=== PATIENT | female | born 1945 | race African-American/Black ===

== ENCOUNTER 2020-01-09 23:08 | Inpatient (IN) | payer MEDICARE, OTHER ==
[~2020-01-09] VITALS: Ht 162.6 cm; Wt 84.9 kg
--- NOTE | 2020-01-09 23:10 | NUR ---
ED Nurse Note: Patient was brought in by ambulance [address] with complaints of SOB. Per EMS patient lives in her car. Patient was given epinephrine per EMS. Patient has hx of asthma. Patient is AAOX4, no complaints of chest pain
--- NOTE | 2020-01-09 23:12 | NUR ---
ED Nurse Note: ERMD at bedside
[2020-01-09] MEDS ORDERED: Solu-MEDROL 125mg Inj IVP ONE (23:15)
[2020-01-09] MEDS ORDERED: Ipratropium 0.02% Inh Soln 2.5ml UD HHN ONE (23:15)
[2020-01-09] MEDS ORDERED: Albuterol ud Inhalation HHN ONE ×2 (23:15→23:45)
--- NOTE | 2020-01-09 23:15 | NUR ---
ED Nurse Note: RT at bedside, patient hooked in BIPAP Fi02 at 80%
--- NOTE | 2020-01-09 23:17 | Emergency Room Report ---
History of Present Illness General Chief Complaint: Dyspnea/Respdistress Source: Patient Present Illness HPI This is a 75-year-old female with a history of high blood pressure and asthma. She presents with chief plaint of shortness of breath and respite distress. She says she is chronically short of breath but symptoms worsened tonight. She says she could not breathe. Her nebulizer treatment was not helping. She called 911. Per EMS she was hypoxic and very tight and wheezing. They gave her breathing treatment and 0.5 of epinephrine IM. Symptoms slightly improved. Worse with exertion. Worse with lying flat. Symptoms are severe. Never had this problem before. Last admission was 3 years ago. Complaint of chest tightness. No swelling. No nausea or vomiting. No diarrhea. No fever chills. Allergies: Coded Allergies: PENICILLINS (Unverified Allergy, Unknown, 01/09/20) COVID-19 Screening Contact w/high risk pt: No Recent Travel to affected area: No Experienced COVID-19 symptoms?: No COVID-19 Testing performed REED CLEANER: No Patient History Past Medical History: see triage record, old chart reviewed, HTN, asthma Past Surgical History: other Pertinent Family History: none Social History: Denies: smoking Now: No Immunizations: other Reviewed Nursing Documentation: PMH: Agreed; PSxH: Agreed Nursing Documentation-PMH Past Medical History: No History, Except For Hx Hypertension: Yes Hx Asthma: Yes Review of Systems Eye: Denies: eye pain, blurred vision ENT: Denies: ear pain, nose congestion, throat swelling Respiratory: Reports: cough, shortness of breath, wheezing Cardiovascular: Denies: chest pain, palpitations Gastrointestinal: Denies: abdominal pain, diarrhea, nausea, vomiting Musculoskeletal: Denies: back pain, joint pain Skin: Denies: rash Neurological: Denies: headache, numbness Endocrine: Denies: increased thirst, increased urine Hematologic/Lymphatic: Denies: easy bruising All Other Systems: negative except mentioned in HPI Physical Exam Vital Signs Date Time Temp Pulse Resp B/P (MAP) Pulse Ox O2 Delivery O2 Flow Rate FiO2 01/09/20 23:09 98.1 110 18 90/40 (57) 75 Room Air Vitals with hypoxia Sp02 EP Interpretation: reviewed, abnormal General Appearance: well appearing, alert, severe distress Head: normocephalic, atraumatic Eyes: bilateral eye PERRL, bilateral eye EOMI ENT: hearing grossly normal, normal pharynx Neck: full range of motion, supple, no meningismus Respiratory: chest non-tender, respiratory distress, decreased breath sounds, wheezing Cardiovascular #1: regular rate, rhythm, no murmur, tachycardia Gastrointestinal: normal bowel sounds, non tender, no mass, no organomegaly, no bruit, non-distended Musculoskeletal: back normal, normal range of motion, gait/station normal Psychiatric: mood/affect normal Procedures Critical Care Time Critical Care Time Critical care is mandated in this patient who presented with respiratory failure secondary to pulmonary edema. Patient require my urgent intervention to attenuate the risks of rotatory collapse which may lead to cardiovascular collapse and . Critical care time is 35 minutes excluding any reportable procedure. Critical care time included evaluation, multiple reevaluation, looking at old charts, interpreting laboratory and diagnostic data, discussing case with patient and family and consultants, and charting. Medical Decision Making Diagnostic Impression: Primary Impression: Respiratory failure with hypoxia Qualified Codes: J96.01 - Acute respiratory failure with hypoxia Additional Impressions: Pulmonary edema Qualified Codes: J81.0 - Acute pulmonary edema Acute exacerbation of CHF (congestive heart failure) Qualified Codes: I50.9 - Heart failure, unspecified Asthma with exacerbation Qualified Codes: J45.901 - Unspecified asthma with (acute) exacerbation Hypertensive cardiovascular disease Qualified Codes: I11.0 - Hypertensive heart disease with heart failure New onset type 2 diabetes mellitus CKD (chronic kidney disease) Qualified Codes: N18.9 - Chronic kidney disease, unspecified ER Course This patient presents with respiratory distress with hypoxia and wheezing. She improved greatly with BiPAP, Lasix, nitroglycerin and Vasotec. She diuresed over 2 L. Much more comfortable on BiPAP now. She has no history of diabetes but glucose is 368 and she has 4+ glucose in the urine. Will admit for further work-up. I contacted Dr. Coker for admission. EKG Diagnostic Results Rate: tachycardiac Rhythm: NSR ST Segments: other - NSST changes ASA given to the pt in ED: Yes Rhythm Strip Diag. Results EP Interpretation: yes Rate: 93 Rhythm: NSR, no PVC's, no ectopy Chest X-Ray Diagnostic Results Chest X-Ray Diagnostic Results : Chest X-Ray Ordered: Yes # of Views/Limited/Complete: 1 View Indication: Shortness of Breath EP Interpretation: Yes Interpretation: no consolidation, no pneumothorax, other - Pulmonary edema Impression: Other - chf with pulm edema Electronically Signed by: Damion Mosher MD Last Vital Signs Date Time Temp Pulse Resp B/P (MAP) Pulse Ox O2 Delivery O2 Flow Rate FiO2 01/09/20 23:09 98.1 110 18 90/40 (57) 75 Room Air Status: improved Disposition: ADMITTED INPATIENT Condition: Serious Damion Mosher MD Jan 09, 2020 23:17
[2020-01-09 23:30] VITALS: BP 231/141
[2020-01-10] VITALS (10 sets, daily range): BP systolic 141–168; BP diastolic 85–110
[2020-01-10] MEDS ORDERED: Nitroglycerin 2% oint pkt TOPIC ONE
[2020-01-10] MEDS ORDERED: Enalaprilat 2.5mg/2ml Inj IV ONE
[2020-01-10] MEDS ORDERED: Nitroglycerin Subl 0.4mg tab SL ONE
[2020-01-10 00:09] LABS: BASOPHILS % (AUTO) 1.8 % (0.0-2.0); EOSINOPHILS % (AUTO) 1.1 % (0.0-3.0); HEMATOCRIT 43.3 % (37.0-47.0); HEMOGLOBIN 14.4 G/DL (12.0-16.0); LYMPHOCYTES % (AUTO) 32.4 % (20.0-45.0); MEAN CORPUSCULAR VOLUME 92 FL (80-99); MONOCYTES % (AUTO) 4.1 % (1.0-10.0); NEUTROPHILS % (AUTO) 60.7 % (45.0-75.0); PLATELET COUNT 238 K/UL (150-450); RED BLOOD COUNT 4.68 M/UL (4.20-5.40); WHITE BLOOD COUNT 7.9 K/UL (4.8-10.8)
--- NOTE | 2020-01-10 00:25 | NUR ---
ED Nurse Note: First dose of NTG 0.4mg/tab given at 0015; BP 230/130, HR 133 2nd dose at 0020 3rd dose at 0025; BP after 3rd dose 198/116, HR 120
[2020-01-10 00:28] LABS: ANION GAP 16 mmol/L (5-15); BLOOD UREA NITROGEN 28 mg/dL (7-18); CALCIUM 8.2 MG/DL (8.5-10.1); CARBON DIOXIDE 22 MMOL/L (21-32); CHLORIDE 105 MMOL/L (98-107); CREATININE 1.6 MG/DL (0.55-1.30); POTASSIUM 4.3 MMOL/L (3.5-5.1); SODIUM 143 MMOL/L (136-145)
[2020-01-10 00:36] LABS: ALANINE AMINOTRANSFERASE 29 U/L (12-78); ALBUMIN 3.5 G/DL (3.4-5.0); ALBUMIN/GLOBULIN RATIO 0.9 (1.0-2.7); ALKALINE PHOSPHATASE 76 U/L (46-116); ASPARTATE AMINO TRANSFERASE 47 U/L (15-37); BILIRUBIN,TOTAL 0.6 MG/DL (0.2-1.0)
[2020-01-10 00:56] LABS: APPEARANCE,URINE CLEAR; BILIRUBIN, URINE NEGATIVE (NEGATIVE); COLOR,URINE PALE YELLOW; GLUCOSE, URINE (UA) 4+ (NEGATIVE); KETONES,URINE NEGATIVE (NEGATIVE); LEUKOCYTE ESTERASE ,URINE NEGATIVE (NEGATIVE); NITRITE,URINE NEGATIVE (NEGATIVE); PH,URINE 5 (4.5-8.0); PROTEIN,URINE 3+ (NEGATIVE); UROBILINOGEN,URINE NORMAL MG/DL (0.0-1.0)
--- NOTE | 2020-01-10 01:00 | NUR ---
ED Nurse Note: post furo output: 700ml urine output
[2020-01-10 01:08] LABS: FERRITIN 117 NG/ML (8-388)
[2020-01-10] MEDS ORDERED: Aspirin Baby 81mg ORAL ONE (01:30)
[2020-01-10] MEDS ORDERED: Albuterol ud Inhalation HHN PRN (03:30)
[2020-01-10] MEDS ORDERED: Insulin Human Regular 100units/ml 3ml IV ONE (03:30)
--- NOTE | 2020-01-10 03:45 | NUR ---
ED Nurse Note: Drained 800ml urine output thru FC
--- NOTE | 2020-01-10 03:48 | NUR ---
ED Nurse Note: Patient comfortably resting on bed. Patient verbalized that she is breathing and feeling better right now.
--- NOTE | 2020-01-10 05:41 | NUR ---
ED Nurse Note: Patient asleep on bed on semi fowlers position. Not in distress, stable vitals noted
--- NOTE | 2020-01-10 06:20 | NUR ---
ED Nurse Note: Patient removed in bipap per ERMD's order. Hooked to NC at 4L - O2 sat at 91%-95%
--- NOTE | 2020-01-10 07:26 | NUR ---
HAND-OFF: Report given to Luli Aguilera
--- NOTE | 2020-01-10 07:30 | NUR ---
ED Nurse Note: Pt is resting on her bed with no distress. Respirations are even and unlabored. Pt is aware of waiting for a bed at this time. AAO x4 and follows commands. Will continue to closely monitor.
--- NOTE | 2020-01-10 08:00 | NUR ---
ED Nurse Note: Pt has $445 in kyle on her wallet with one ring and a yellow necklace for her belongings.
--- NOTE | 2020-01-10 08:44 | Diagnostic Imaging Report ---
Indication: Shortness of breath Technique: One view of the chest Comparison: none Findings: Patient's chin to the upper mediastinum. There are bilateral diffuse interstitial and airspace infiltrates versus edema. No definite effusions. The heart is borderline enlarged. Inspiration is suboptimal. Impression: Bilateral diffuse infiltrates versus edema. Mild cardiomegaly
--- NOTE | 2020-01-10 12:10 | NUR ---
ED Nurse Note: Dr Scott at the bed side.
--- NOTE | 2020-01-10 13:09 | Consultation ---
History of Present Illness General Chief Complaint: Dyspnea/Respdistress Reason for Consultation: Acute kidney injury Present Illness HPI This is a 75 year old female with past medical history significant for HTN and CHF presenting with acute on chronic SOB, swelling. She says she used to take medications for HTN including LAsix up until 1.5 years ago, but after her from a blood clot, she was very angry at doctors, and stopped seeing her doctor and stopped taking all her meds. Over the last several months, she noticed swelling, weight gain, and orthopnea, which was worsening. SHe has also been drinking "a lot of water." Over the last few days, she got so short of breath that she called 911 from home. Right now, she feels much better after BIPAP and Lasix. Allergies: Coded Allergies: PENICILLINS (Unverified Allergy, Unknown, 01/09/20) Patient History Healthcare decision maker N Resuscitation status Advanced Directive on File Review of Systems Constitutional: Reports: malaise, weakness Respiratory: Reports: cough, orthopnea, shortness of breath, wheezing Cardiovascular: Reports: chest pain, edema, palpitations Gastrointestinal: Denies: no symptoms, see HPI, abdominal pain, constipation, diarrhea, nausea, vomiting, melena, hematemesis, other Genitourinary: Denies: no symptoms, see HPI, discharge, dysuria, frequency, hematuria, pain, retention, incontinence, urgency, vag bleed/dc, other Musculoskeletal: Denies: no symptoms, see HPI, back pain, gout, joint pain, joint swelling, muscle pain, muscle stiffness, other Skin: Denies: no symptoms, see HPI, rash, change in color, change in hair/nails , dryness, lesions, other Psychiatric: Denies: no symptoms, see HPI, prior hx, anxiety, depressed feelings, emotional problems, SI, HI, hallucinations, other Neurological: Denies: no symptoms, see HPI, headache, numbness, paresthesia, seizure, tingling, tremors, focal weakness, syncope, dizziness, other Endocrine: Denies: no symptoms, see HPI, excessive sweating, flushing, intolerance to temperature, increased thirst, increased urine, unexplained weight loss, other Hematologic/Lymphatic: Denies: no symptoms, see HPI, anemia, blood clots, easy bleeding, easy bruising, swollen glands, diathesis, other Physical Exam General Appearance: no apparent distress Lines, tubes and drains: peripheral HEENT: normocephalic, atraumatic Neck: non-tender, normal alignment, supple Respiratory/Chest: crackles/rales Cardiovascular/Chest: tachycardia Abdomen: non tender, soft Neurologic: alert, oriented x 3 Musculoskeletal: no effusion Last 24 Hour Vital Signs Date Time Temp Pulse Resp B/P (MAP) Pulse Ox O2 Delivery O2 Flow Rate FiO2 01/10/20 07:32 93 27 94 01/10/20 07:30 98.1 78 17 156/90 98 Room Air 01/10/20 05:30 98.1 90 22 141/94 100 Bi-pap 80 01/10/20 03:30 98.1 94 22 156/97 100 Bi-pap 80 01/10/20 03:20 92 24 100 60 01/10/20 01:30 98.0 106 23 164/103 97 Bi-pap 80 01/10/20 00:06 231/141 01/10/20 00:05 109 35 100 Bi-Pap 80 116 39 100 01/10/20 00:04 231/141 01/10/20 00:04 232/141 01/09/20 23:30 98.1 132 39 231/141 100 Room Air 60 01/09/20 23:30 134 39 Room Air 60 01/09/20 23:16 134 39 100 60 01/09/20 23:09 98.1 110 18 90/40 (57) 75 Room Air Intake and Output 01/09/20 01/10/20 19:00 07:00 Intake Total 20 ml Output Total 2700 ml Balance -2680 ml Intake Oral 20 ml Output Urine Total 2700 ml Laboratory Tests Test 01/09/20 23:20 01/10/20 00:35 White Blood Count 7.9 K/UL (4.8-10.8) Red Blood Count 4.68 M/UL (4.20-5.40) Hemoglobin 14.4 G/DL (12.0-16.0) Hematocrit 43.3 % (37.0-47.0) Mean Corpuscular Volume 92 FL (80-99) Mean Corpuscular Hemoglobin 30.8 PG (27.0-31.0) Mean Corpuscular Hemoglobin Concent 33.4 G/DL (32.0-36.0) Red Cell Distribution Width 13.0 % (11.6-14.8) Platelet Count 238 K/UL (150-450) Mean Platelet Volume 6.8 FL (6.5-10.1) Neutrophils (%) (Auto) 60.7 % (45.0-75.0) Lymphocytes (%) (Auto) 32.4 % (20.0-45.0) Monocytes (%) (Auto) 4.1 % (1.0-10.0) Eosinophils (%) (Auto) 1.1 % (0.0-3.0) Basophils (%) (Auto) 1.8 % (0.0-2.0) D-Dimer 1.86 mg/L FEU (0.00-0.49) H Sodium Level 143 MMOL/L (136-145) Potassium Level 4.3 MMOL/L (3.5-5.1) Chloride Level 105 MMOL/L (98-107) Carbon Dioxide Level 22 MMOL/L (21-32) Anion Gap 16 mmol/L (5-15) H Blood Urea Nitrogen 28 mg/dL (7-18) H Creatinine 1.6 MG/DL (0.55-1.30) H Estimat Glomerular Filtration Rate 38.2 mL/min (>60) Glucose Level 368 MG/DL (74-106) H Calcium Level 8.2 MG/DL (8.5-10.1) L Ferritin 117 NG/ML (8-388) Total Bilirubin 0.6 MG/DL (0.2-1.0) Aspartate Amino Transf (AST/SGOT) 47 U/L (15-37) H Alanine Aminotransferase (ALT/SGPT) 29 U/L (12-78) Alkaline Phosphatase 76 U/L (46-116) Troponin I 0.040 ng/mL (0.000-0.056) C-Reactive Protein, Quantitative < 0.4 mg/dL (0.00-0.90) Pro-B-Type Natriuretic Peptide 5064 pg/mL (0-125) H Total Protein 7.2 G/DL (6.4-8.2) Albumin 3.5 G/DL (3.4-5.0) Globulin 3.7 g/dL Albumin/Globulin Ratio 0.9 (1.0-2.7) L Urine Color Pale yellow Urine Appearance Clear Urine pH 5 (4.5-8.0) Urine Specific [place] 1.015 (1.005-1.035) Urine Protein 3+ (NEGATIVE) H Urine Glucose (UA) 4+ (NEGATIVE) H Urine Ketones Negative (NEGATIVE) Urine Blood 1+ (NEGATIVE) H Urine Nitrite Negative (NEGATIVE) Urine Bilirubin Negative (NEGATIVE) Urine Urobilinogen Normal MG/DL (0.0-1.0) Urine Leukocyte Esterase Negative (NEGATIVE) Urine RBC 0-2 /HPF (0 - 2) Urine WBC 0-2 /HPF (0 - 2) Urine Squamous Epithelial Cells Few /LPF (NONE/OCC) Urine Bacteria None /HPF (NONE) Urine Opiates Screen Negative (NEGATIVE) Urine Barbiturates Screen Negative (NEGATIVE) Phencyclidine (PCP) Screen Negative (NEGATIVE) Urine Amphetamines Screen Negative (NEGATIVE) Urine Benzodiazepines Screen Negative (NEGATIVE) Urine Cocaine Screen Negative (NEGATIVE) Urine Marijuana (THC) Screen Negative (NEGATIVE) Height (Feet): 5 Height (Inches): 4.00 Weight (Pounds): 180 Medications Current Medications Medications (Trade) Dose Ordered Sig/Manohar Route PRN Reason Start Time Stop Time Status Last Admin Dose Admin Albuterol Sulfate (Proventil) 2.5 mg Q4HRT PRN HHN wheezing 01/10/20 03:30 01/15/20 03:29 Assessment/Plan Diagnosis [place] I: #acute kidney injury due to CRS1 #acute on chronic CHF exacerbation #Acute hypoxemic respiratory failure #SOB, orthopnea #HTN - lasix 40 IV BID - urine studies - bipap prn - amlodipine 10mg daily - BP control - breathing treatments - antibiotics - strict I&Os - daily weights - monitor BMP, mag and phos daily - avoid nephrotoxins Time spent 70 min - greater than 50% on care coordination and counseling García Coker M.D. Jan 10, 2020 13:09
--- NOTE | 2020-01-10 13:59 | NUR ---
ED Nurse Note: Report given to Afsoun RN of telemetry unit.
--- NOTE | 2020-01-10 14:12 | NUR ---
ED Nurse Note: Dr Mehreen edouard for pt to go up with BP 168/104.
--- NOTE | 2020-01-10 14:45 | Consultation ---
DATE OF CONSULTATION: 01/10/2020 PULMONARY CONSULTATION CONSULTING PHYSICIAN: Victor Hugo Scott M.D. HISTORY OF PRESENT ILLNESS: This is a 75-year-old female with history of hypertension and asthma. She is in the hospital with shortness of breath and was in respiratory distress when she arrived. She states that her worst breathing is worse than previous. She was brought in by paramedics. The patient received epinephrine as well as breathing treatments with improvement in her symptoms. At this point, she is saying she is feeling better. PAST MEDICAL HISTORY: Notable for hypertension and asthma. PAST SURGICAL HISTORY: None. MEDICATIONS: Include albuterol, Lasix, and steroids. SOCIAL HISTORY: No history of alcohol or tobacco usage. REVIEW OF SYSTEMS: Reviewed. Pertinent positives and negatives are included in the body of report. PHYSICAL EXAMINATION: GENERAL: Reveals a 75-year-old female. VITAL SIGNS: Blood pressure is 150/60, heart rate 82, and respirations 20. O2 saturation 98% on room air. She is afebrile. HEENT: Unremarkable. CHEST: Shows decreased breath sounds bilaterally with few rhonchi. ABDOMEN: Soft. EXTREMITIES: There is no appreciable edema. LABORATORY DATA: Lab testing shows normal CBC and BMP with a creatinine 1.6. AST 47. Troponin negative x1. IMAGING STUDIES: X-ray of chest was obtained yesterday, which shows bilateral diffuse infiltrates suspicious for pulmonary edema. IMPRESSION: 1. Suspect pulmonary edema. 2. Hypertension. 3. Asthma. DISCUSSION: Currently, I do not suspect an infectious process. We will need to obtain COVID PCR. 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 Discussed with Internal Medicine. Needs diuresis, cardiac evaluation, echo. We will follow. Victor Hugo Scott M.D. DR: JORGE JOB#: [id number] CC:
--- NOTE | 2020-01-10 15:16 | History and Physical ---
History of Present Illness General Date patient seen: Jan 10, 2020 Reason for Hospitalization: Dyspnea/Respdistress Present Illness HPI 75 year old female with HTN presenting with acute on chronic SOB, swelling. She says she used to take medications for HTN including LAsix up until 1.5 years ago , but after her from a blood clot, she was very angry at doctors, and stopped seeing her doctor and stopped taking all her meds. Over the last several months, she noticed swelling, weight gain, and orthopnea, which was worsening. SHe has also been drinking "a lot of water." Over the last few days, she got so short of breath that she called 911 from home. Right now, she feels much better after BIPAP and Lasix. Allergies: Coded Allergies: PENICILLINS (Unverified Allergy, Unknown, 01/09/20) COVID-19 Screening Contact w/high risk pt: No Recent Travel to affected area: No Experienced COVID-19 symptoms?: No Patient History Healthcare decision maker N Resuscitation status Advanced Directive on File Review of Systems Constitutional: Denies: no symptoms, see HPI, chills, sweats, fever, malaise, weakness, other Eye: Denies: no symptoms, see HPI, eye pain, blurred vision, tearing, double vision, nose pain, nose congestion, acuity changes, discharge, other ENT: Denies: no symptoms, see HPI, ear pain, ear discharge, nose pain, nose congestion, throat pain, throat swelling, mouth pain, hearing loss, nasal discharge, other Respiratory: Reports: orthopnea, shortness of breath Cardiovascular: Reports: edema Gastrointestinal: Denies: no symptoms, see HPI, abdominal pain, constipation, diarrhea, nausea, vomiting, melena, hematemesis, other Genitourinary: Denies: no symptoms, see HPI, discharge, dysuria, frequency, hematuria, pain, retention, incontinence, urgency, vag bleed/dc, other Skin: Denies: no symptoms, see HPI, rash, change in color, change in hair/nails , dryness, lesions, other Psychiatric: Denies: no symptoms, see HPI, prior hx, anxiety, depressed feelings, emotional problems, SI, HI, hallucinations, other Neurological: Denies: no symptoms, see HPI, headache, numbness, paresthesia, seizure, tingling, tremors, focal weakness, syncope, dizziness, other Endocrine: Denies: no symptoms, see HPI, excessive sweating, flushing, intolerance to temperature, increased thirst, increased urine, unexplained weight loss, other Hematologic/Lymphatic: Denies: no symptoms, see HPI, anemia, blood clots, easy bleeding, easy bruising, swollen glands, diathesis, other Physical Exam General Appearance: no apparent distress, alert HEENT: normocephalic, atraumatic Neck: supple Respiratory/Chest: no respiratory distress, decreased breath sounds, crackles/ rales Cardiovascular/Chest: normal rate, regular rhythm Abdomen: non tender, soft Extremities: moderate edema Neurologic: alert, oriented x 3 Last 24 Hour Vital Signs Date Time Temp Pulse Resp B/P (MAP) Pulse Ox O2 Delivery O2 Flow Rate FiO2 01/10/20 14:13 98.6 78 20 168/104 99 Nasal Cannula 2.0 01/10/20 14:13 98.6 78 20 168/104 99 Nasal Cannula 2.0 01/10/20 11:35 98.0 79 16 156/85 98 Nasal Cannula 2.0 01/10/20 09:35 98.6 80 20 142/87 96 Nasal Cannula 2.0 01/10/20 07:32 93 27 94 01/10/20 07:30 98.1 78 17 156/90 98 Room Air 01/10/20 05:30 98.1 90 22 141/94 100 Bi-pap 80 01/10/20 03:30 98.1 94 22 156/97 100 Bi-pap 80 01/10/20 03:20 92 24 100 60 01/10/20 01:30 98.0 106 23 164/103 97 Bi-pap 80 01/10/20 00:06 231/141 01/10/20 00:05 109 35 100 Bi-Pap 80 116 39 100 01/10/20 00:04 231/141 01/10/20 00:04 232/141 01/09/20 23:30 98.1 132 39 231/141 100 Room Air 60 01/09/20 23:30 134 39 Room Air 60 01/09/20 23:16 134 39 100 60 01/09/20 23:09 98.1 110 18 90/40 (57) 75 Room Air Intake and Output 01/09/20 01/10/20 19:00 07:00 Intake Total 20 ml Output Total 2700 ml Balance -2680 ml Intake Oral 20 ml Output Urine Total 2700 ml Laboratory Tests Test 01/09/20 23:20 01/10/20 00:35 White Blood Count 7.9 K/UL (4.8-10.8) Red Blood Count 4.68 M/UL (4.20-5.40) Hemoglobin 14.4 G/DL (12.0-16.0) Hematocrit 43.3 % (37.0-47.0) Mean Corpuscular Volume 92 FL (80-99) Mean Corpuscular Hemoglobin 30.8 PG (27.0-31.0) Mean Corpuscular Hemoglobin Concent 33.4 G/DL (32.0-36.0) Red Cell Distribution Width 13.0 % (11.6-14.8) Platelet Count 238 K/UL (150-450) Mean Platelet Volume 6.8 FL (6.5-10.1) Neutrophils (%) (Auto) 60.7 % (45.0-75.0) Lymphocytes (%) (Auto) 32.4 % (20.0-45.0) Monocytes (%) (Auto) 4.1 % (1.0-10.0) Eosinophils (%) (Auto) 1.1 % (0.0-3.0) Basophils (%) (Auto) 1.8 % (0.0-2.0) D-Dimer 1.86 mg/L FEU (0.00-0.49) H Sodium Level 143 MMOL/L (136-145) Potassium Level 4.3 MMOL/L (3.5-5.1) Chloride Level 105 MMOL/L (98-107) Carbon Dioxide Level 22 MMOL/L (21-32) Anion Gap 16 mmol/L (5-15) H Blood Urea Nitrogen 28 mg/dL (7-18) H Creatinine 1.6 MG/DL (0.55-1.30) H Estimat Glomerular Filtration Rate 38.2 mL/min (>60) Glucose Level 368 MG/DL (74-106) H Calcium Level 8.2 MG/DL (8.5-10.1) L Ferritin 117 NG/ML (8-388) Total Bilirubin 0.6 MG/DL (0.2-1.0) Aspartate Amino Transf (AST/SGOT) 47 U/L (15-37) H Alanine Aminotransferase (ALT/SGPT) 29 U/L (12-78) Alkaline Phosphatase 76 U/L (46-116) Troponin I 0.040 ng/mL (0.000-0.056) C-Reactive Protein, Quantitative < 0.4 mg/dL (0.00-0.90) Pro-B-Type Natriuretic Peptide 5064 pg/mL (0-125) H Total Protein 7.2 G/DL (6.4-8.2) Albumin 3.5 G/DL (3.4-5.0) Globulin 3.7 g/dL Albumin/Globulin Ratio 0.9 (1.0-2.7) L Urine Color Pale yellow Urine Appearance Clear Urine pH 5 (4.5-8.0) Urine Specific [place] 1.015 (1.005-1.035) Urine Protein 3+ (NEGATIVE) H Urine Glucose (UA) 4+ (NEGATIVE) H Urine Ketones Negative (NEGATIVE) Urine Blood 1+ (NEGATIVE) H Urine Nitrite Negative (NEGATIVE) Urine Bilirubin Negative (NEGATIVE) Urine Urobilinogen Normal MG/DL (0.0-1.0) Urine Leukocyte Esterase Negative (NEGATIVE) Urine RBC 0-2 /HPF (0 - 2) Urine WBC 0-2 /HPF (0 - 2) Urine Squamous Epithelial Cells Few /LPF (NONE/OCC) Urine Bacteria None /HPF (NONE) Urine Opiates Screen Negative (NEGATIVE) Urine Barbiturates Screen Negative (NEGATIVE) Phencyclidine (PCP) Screen Negative (NEGATIVE) Urine Amphetamines Screen Negative (NEGATIVE) Urine Benzodiazepines Screen Negative (NEGATIVE) Urine Cocaine Screen Negative (NEGATIVE) Urine Marijuana (THC) Screen Negative (NEGATIVE) Height (Feet): 5 Height (Inches): 4.00 Weight (Pounds): 180 Medications Current Medications Medications (Trade) Dose Ordered Sig/Manohar Route PRN Reason Start Time Stop Time Status Last Admin Dose Admin Albuterol Sulfate (Proventil) 2.5 mg Q4HRT PRN HHN wheezing 01/10/20 03:30 01/15/20 03:29 Assessment/Plan Problem List: (1) Hypertensive cardiovascular disease ICD Codes: I11.9 - Hypertensive heart disease without heart failure SNOMED: 49783568 Qualifiers: Qualified Codes: I11.0 - Hypertensive heart disease with heart failure (2) Asthma with exacerbation ICD Codes: J45.901 - Unspecified asthma with (acute) exacerbation SNOMED: 545919145 Qualifiers: Qualified Codes: J45.901 - Unspecified asthma with (acute) exacerbation (3) CKD (chronic kidney disease) ICD Codes: N18.9 - Chronic kidney disease, unspecified SNOMED: 441051139 Qualifiers: Qualified Codes: N18.9 - Chronic kidney disease, unspecified (4) New onset type 2 diabetes mellitus ICD Codes: E11.9 - Type 2 diabetes mellitus without complications SNOMED: 85740765 (5) Pulmonary edema ICD Codes: J81.1 - Chronic pulmonary edema SNOMED: 14352099 Qualifiers: Qualified Codes: J81.0 - Acute pulmonary edema (6) Acute exacerbation of CHF (congestive heart failure) ICD Codes: I50.9 - Heart failure, unspecified SNOMED: 584210345, [id number] Qualifiers: Qualified Codes: I50.9 - Heart failure, unspecified (7) Respiratory failure with hypoxia ICD Codes: J96.91 - Respiratory failure, unspecified with hypoxia SNOMED: 79823222841864244 Qualifiers: Qualified Codes: J96.01 - Acute respiratory failure with hypoxia Status: stable Assessment/Plan: Ms. Demetris Cruz is a 75 year old female with hx of HTN, presenting with pulmonary edema and CHF exacerbation (undiagnosed) #Pulmonary edema #acute hypoxic respiratory failure #Pedal edema #Suspected acute on chronic CHF -ADmit to tele -cardiology, pulm consult appreciated. -Continue LAsix IV 40 BID -Check BMP -BNP elevated. -cXR with pulmonary edema noted. -s/p BiPAP, lasix with significant improvement noted. -Needs TTE. -Will need GDT once CHF formally diagnosed #Hyperglycemia #Suspected DM2 -no formal diagnosis but noted to be hyperglycemic -endo consulted. appreciate recs. -check a1c -RISS, POCT #NENITA -nephro consulted. appreciate recs. -diuresis as above. -check BMP #Hypertensive urgency #HTN likely longstanding, not on meds. -start amlodipine 10 mg daily -will need likely BB and other agents if continues to be high. Time spent on encounter, 80 mins, 40 mins spent on counseling, coordination of care, d/w RN, consultants. Extra 37 mins spent on chart review of EMR records; physician documentation, labs, imaging, medications. Time of note doesn't reflect time of encounter. Garret Montaño MD Jan 10, 2020 15:16
[2020-01-10] MEDS: NovoLOG Insulin Flexpen SUBQ SCH ×2 (16:30→21:00)
[2020-01-10] MEDS ORDERED: cefTRIAXone 1 GM in D5W 55 ML IVPB SCH (19:30)
--- NOTE | 2020-01-10 19:30 | NUR ---
NURSE NOTES: Received pt from [employer] ATTENDANTLUCIAN Rockwell at 1445, all admission assessments and instructions done and pt verbally confirmed to understand all. pt is awake and alert, pt has NC 4LMP. pt is on continues heart monitoring, pt has intact iv access RAC 20G SL. skin is intact. pt has Love cath in place is working well. Dr Scott is aware about admission, fever, HTN, tachycardia, and other lab results and V/S, he gave order heparin and Levaquin iv and Dr stated other orders Dr Mcarthur will F/U. All belongings are with pt and pt has 447$ and asked to put in safe, RN called RANDOLPH Flores and she couldn't come and report given to LUCIAN Schwartz to F/U for money. all needs attended, bed is locked and is in the lowest position, call light within easy reach. will continue to monitor. Addendum: 01/10/20 at 2058 by Reza Posadas RN skin is intact. Addendum: 01/10/20 at 2101 by Reza Posadas RN pt asked for asthma spray, Dr Scott is aware but refused to give it to her, pt is aware. and pt doesn't remember home meds, Dr Scott is aware.
--- NOTE | 2020-01-10 19:31 | NUR ---
NURSE NOTES: Got report from Reza RN. Pt in stable condition. No s/s of distress or discomfort noted. Pt resting in bed comfortably. Bed in low and locked position, call light within reach, bedside table within reach. Continue to monitor.
[2020-01-10] MEDS: Heparin 5000 units/ml inj SUBQ SCH (21:26)
[2020-01-11] VITALS: BP 149/82
[2020-01-11 04:00] VITALS: BP 144/71
[2020-01-11] MEDS: NovoLOG Insulin Flexpen SUBQ SCH ×4 (06:30→21:00)
[2020-01-11 06:51] LABS: ANION GAP 9 mmol/L (5-15); BLOOD UREA NITROGEN 29 mg/dL (7-18); CALCIUM 8.6 MG/DL (8.5-10.1); CARBON DIOXIDE 31 MMOL/L (21-32); CHLORIDE 102 MMOL/L (98-107); CREATININE 1.5 MG/DL (0.55-1.30); POTASSIUM 3.8 MMOL/L (3.5-5.1); SODIUM 142 MMOL/L (136-145)
[2020-01-11 07:09] LABS: BASOPHILS % (AUTO) 0.6 % (0.0-2.0); HEMATOCRIT 39.5 % (37.0-47.0); HEMOGLOBIN 13.3 G/DL (12.0-16.0); LYMPHOCYTES % (AUTO) 8.7 % (20.0-45.0); MEAN CORPUSCULAR VOLUME 89 FL (80-99); MONOCYTES % (AUTO) 6.8 % (1.0-10.0); PLATELET COUNT 185 K/UL (150-450); RED BLOOD COUNT 4.42 M/UL (4.20-5.40); RED CELL DISTRIBUTION WIDTH 12.5 % (11.6-14.8); WHITE BLOOD COUNT 11.4 K/UL (4.8-10.8)
--- NOTE | 2020-01-11 07:20 | NUR ---
HAND-OFF: Report given to Arabella EPSTEIN.
--- NOTE | 2020-01-11 07:25 | NUR ---
NURSE NOTES: Received patient in bed awake. O2 via NC in place, no SOB or acute distress. IV line intact and patent. FC intact, draining dark yellow urine. HOB elevated. Bed locked in lowest position. Call light within reach. Will continue plan of care.
[2020-01-11 08:00] VITALS: BP 160/110
[2020-01-11 08:32] LABS: APPEARANCE,URINE SLIGHTLY CLOUDY; BILIRUBIN, URINE NEGATIVE (NEGATIVE); GLUCOSE, URINE (UA) NEGATIVE (NEGATIVE); KETONES,URINE NEGATIVE (NEGATIVE); LEUKOCYTE ESTERASE ,URINE 1+ (NEGATIVE); NITRITE,URINE NEGATIVE (NEGATIVE); PH,URINE 7 (4.5-8.0); PROTEIN,URINE 2+ (NEGATIVE); UROBILINOGEN,URINE 1 MG/DL (0.0-1.0)
[2020-01-11 08:34] LABS: COLOR,URINE YELLOW
[2020-01-11] MEDS ORDERED: HydrALAZINE 25mg tab ORAL SCH (09:00)
--- NOTE | 2020-01-11 09:06 | Nephrology Progress Note ---
Assessment/Plan Plan #acute kidney injury due to CRS1 #acute on chronic CHF exacerbation #Acute hypoxemic respiratory failure #SOB, orthopnea #HTN - lasix 40 IV BID - continue levaquin - bipap prn - amlodipine 10mg daily - BP control - breathing treatments - antibiotics - strict I&Os - daily weights - monitor BMP, mag and phos daily - avoid nephrotoxins Time spent 70 min - greater than 50% on care coordination and counseling Subjective ROS Limited/Unobtainable: No Constitutional: Denies: no symptoms, chills, diaphoresis, fever, malaise, weakness, other HEENT: Denies: no symptoms, eye pain, blurred vision, tearing, double vision, ear pain, ear discharge, nose pain, nose congestion, throat pain, throat swelling, mouth pain, mouth swelling, other Genitourinary: Denies: no symptoms, burning, discharge, frequency, flank pain, hematuria, incontinence, pain, urgency, other Neurologic/Psychiatric: Denies: no symptoms, anxiety, depressed, emotional problems, headache, numbness, paresthesia, pre-existing deficit, seizure, tingling, tremors, weakness, other Subjective Breathing improved on NC Cr 1.5 a1c 6.7 Objective Objective Last 24 Hour Vital Signs Date Time Temp Pulse Resp B/P (MAP) Pulse Ox O2 Delivery O2 Flow Rate FiO2 01/11/20 08:00 98.1 89 20 160/110 (127) 97 01/11/20 04:00 90 01/11/20 04:00 98.2 89 18 144/71 (95) 96 01/11/20 02:50 Nasal Cannula 2.0 01/11/20 00:00 99.1 86 18 149/82 (104) 95 01/11/20 00:00 101 01/10/20 21:00 Nasal Cannula 2.0 01/10/20 20:00 109 01/10/20 20:00 99.0 99 18 165/95 (118) 96 01/10/20 16:30 99.0 101 19 158/108 (125) 94 01/10/20 15:58 105 01/10/20 15:49 100 164/110 01/10/20 15:19 102 01/10/20 15:15 Nasal Cannula 2.0 01/10/20 15:00 100.0 100 20 164/110 (128) 94 01/10/20 14:13 98.6 78 20 168/104 99 Nasal Cannula 2.0 01/10/20 14:13 98.6 78 20 168/104 99 Nasal Cannula 2.0 01/10/20 11:35 98.0 79 16 156/85 98 Nasal Cannula 2.0 01/10/20 09:35 98.6 80 20 142/87 96 Nasal Cannula 2.0 Intake and Output 01/10/20 01/11/20 19:00 07:00 Intake Total 120 ml Output Total 4000 ml Balance 120 ml -4000 ml Intake Oral 120 ml Output Urine Total 4000 ml Laboratory Tests 01/11/20 04:00: White Blood Count 11.4H, Red Blood Count 4.42, Hemoglobin 13.3, Hematocrit 39.5 , Mean Corpuscular Volume 89, Mean Corpuscular Hemoglobin 30.1, Mean Corpuscular Hemoglobin Concent 33.7, Red Cell Distribution Width 12.5, Platelet Count 185, Mean Platelet Volume 7.5, Neutrophils (%) (Auto) 84.0H, Lymphocytes ( %) (Auto) 8.7L, Monocytes (%) (Auto) 6.8, Eosinophils (%) (Auto) 0.0, Basophils (%) (Auto) 0.6, Sodium Level 142, Potassium Level 3.8, Chloride Level 102, Carbon Dioxide Level 31, Anion Gap 9, Blood Urea Nitrogen 29H, Creatinine 1.5H, Estimat Glomerular Filtration Rate 41.1, Glucose Level 117#H, Hemoglobin A1c 6.7H, Calcium Level 8.6 Height (Feet): 5 Height (Inches): 4.00 Weight (Pounds): 180 General Appearance: WD/WN, no apparent distress EENT: PERRL/EOMI, normal ENT inspection Neck: non-tender, normal alignment Cardiovascular: normal peripheral pulses, normal rate, regular rhythm Respiratory/Chest: chest wall non-tender, crackles/rales Abdomen: normal bowel sounds, non tender, soft Extremities: non-tender Neurologic: alert, oriented x 3 García Coker M.D. Jan 11, 2020 09:06
[2020-01-11] MEDS ORDERED: HydrALAZINE 50mg tab ORAL SCH (09:15)
[2020-01-11] MEDS: Heparin 5000 units/ml inj SUBQ SCH ×2 (09:37→21:00)
--- NOTE | 2020-01-11 10:47 | Pulmonology Progress Note ---
Subjective ROS Limited/Unobtainable: No Interval Events: COVID 19 pcr negative; heart leaking Constitutional: Reports: no symptoms HEENT: Repors: no symptoms Respiratory: Reports: shortness of breath Cardiovascular: Reports: no symptoms Gastrointestinal/Abdominal: Reports: no symptoms Genitourinary: Reports: no symptoms Allergies: Coded Allergies: PENICILLINS (Unverified Allergy, Unknown, 01/09/20) Objective Last 24 Hour Vital Signs Date Time Temp Pulse Resp B/P (MAP) Pulse Ox O2 Delivery O2 Flow Rate FiO2 01/11/20 09:34 160/110 01/11/20 09:33 89 160/110 01/11/20 08:00 93 01/11/20 08:00 98.1 89 20 160/110 (127) 97 01/11/20 04:00 90 01/11/20 04:00 98.2 89 18 144/71 (95) 96 01/11/20 02:50 Nasal Cannula 2.0 01/11/20 00:00 99.1 86 18 149/82 (104) 95 01/11/20 00:00 101 01/10/20 21:00 Nasal Cannula 2.0 01/10/20 20:00 109 01/10/20 20:00 99.0 99 18 165/95 (118) 96 01/10/20 16:30 99.0 101 19 158/108 (125) 94 01/10/20 15:58 105 01/10/20 15:49 100 164/110 01/10/20 15:19 102 01/10/20 15:15 Nasal Cannula 2.0 01/10/20 15:00 100.0 100 20 164/110 (128) 94 01/10/20 14:13 98.6 78 20 168/104 99 Nasal Cannula 2.0 01/10/20 14:13 98.6 78 20 168/104 99 Nasal Cannula 2.0 01/10/20 11:35 98.0 79 16 156/85 98 Nasal Cannula 2.0 Intake and Output 01/10/20 01/11/20 19:00 07:00 Intake Total 120 ml Output Total 4000 ml Balance 120 ml -4000 ml Intake Oral 120 ml Output Urine Total 4000 ml Microbiology Date/Time Source Procedure Growth Status 01/09/20 23:30 Nasopharynx Coronavirus COVID-19 PCR ([facility]) - Final Complete 01/09/20 23:20 Arm Right Blood Culture - Preliminary NO GROWTH AFTER 24 HOURS Resulted 01/09/20 23:05 Arm Left Blood Culture - Preliminary NO GROWTH AFTER 24 HOURS Resulted Laboratory Tests 01/11/20 04:00: White Blood Count 11.4H, Red Blood Count 4.42, Hemoglobin 13.3, Hematocrit 39.5 , Mean Corpuscular Volume 89, Mean Corpuscular Hemoglobin 30.1, Mean Corpuscular Hemoglobin Concent 33.7, Red Cell Distribution Width 12.5, Platelet Count 185, Mean Platelet Volume 7.5, Neutrophils (%) (Auto) 84.0H, Lymphocytes ( %) (Auto) 8.7L, Monocytes (%) (Auto) 6.8, Eosinophils (%) (Auto) 0.0, Basophils (%) (Auto) 0.6, Sodium Level 142, Potassium Level 3.8, Chloride Level 102, Carbon Dioxide Level 31, Anion Gap 9, Blood Urea Nitrogen 29H, Creatinine 1.5H, Estimat Glomerular Filtration Rate 41.1, Glucose Level 117#H, Hemoglobin A1c 6.7H, Calcium Level 8.6 Current Medications Medications (Trade) Dose Ordered Sig/Manohar Route PRN Reason Start Time Stop Time Status Last Admin Dose Admin Albuterol Sulfate (Proventil) 2.5 mg Q4HRT PRN HHN wheezing 01/10/20 03:30 01/15/20 03:29 Amlodipine Besylate (Norvasc) 10 mg DAILY ORAL 01/10/20 15:15 02/09/20 15:14 01/11/20 09:33 Dextrose (Dextrose 50%) 25 ml Q30M PRN IV Hypoglycemia 01/10/20 15:15 04/09/20 15:14 Dextrose (Dextrose 50%) 50 ml Q30M PRN IV Hypoglycemia 01/10/20 15:15 04/09/20 15:14 Furosemide (Lasix) 40 mg EVERY 12 HOURS IV 01/10/20 21:00 02/09/20 20:59 01/11/20 09:34 Heparin Sodium (Porcine) (Heparin 5000 units/ml) 5,000 units EVERY 12 HOURS SUBQ 01/10/20 21:00 02/24/20 20:59 01/11/20 09:37 Hydralazine HCl (Apresoline) 50 mg TID ORAL 01/11/20 09:15 04/10/20 09:14 01/11/20 09:34 Insulin Aspart (NovoLOG) BEFORE MEALS AND HS SUBQ 01/10/20 16:30 04/09/20 16:29 Levofloxacin 50 ml @ 50 mls/hr Q24H IVPB 01/11/20 21:00 01/18/20 20:59 Assessment/Plan Assessment/Plan IMPRESSION: 1. Pulmonary edema. 2. Hypertension. 3. Asthma. DISCUSSION: Currently, I do not suspect an infectious process. Has negative COVID 19 pcr Will dc isolation Will dc heart Continue diuresis Wood Pascual Omar Syed MD Jan 11, 2020 10:47
--- NOTE | 2020-01-11 11:00 | NUR ---
NURSE NOTES: Patient complaining of pain with urination, Dr Scott made aware, with orders to DC FC.
--- NOTE | 2020-01-11 11:08 | NUR ---
NURSE NOTES: FC removed as ordered.
--- NOTE | 2020-01-11 11:23 | NUR ---
CASE MANAGEMENT:REVIEW 75YR OLD FEMALE BIBA FROM STREET (LIVES IN HER CAR) CC; SOB. SAT 75% ON RA SI: RESPIRATORY FAILURE. CKD. CHF. NEWLY DIAGNOSED DM 98.0 110 18 90/40 75% ON RA BUN+28 CR+1.6 GLUCOSE+368 BNP+5064 IS: PLACED ON 2L/NC IV SOLUMEDROL DUONEB HHN IV MAG SULFATE IV VASOTEC IV LASIX NTG SL NITRO BID 1' ASA PO IV INSULIN BLOOD CX COVID SWAB : TELEMETRY STATUS DCP: SOCIAL SERVICE CONSULT INTERQUAL CRITERIA MET
[2020-01-11 12:00] VITALS: BP 151/96
[2020-01-11] MEDS: HydrALAZINE 50mg tab ORAL SCH ×2 (14:23→21:42)
--- NOTE | 2020-01-11 15:07 | General Progress Note ---
Assessment/Plan Problem List: (1) Hypertensive cardiovascular disease ICD Codes: I11.9 - Hypertensive heart disease without heart failure SNOMED: 50778073 Qualifiers: Qualified Codes: I11.0 - Hypertensive heart disease with heart failure (2) Asthma with exacerbation ICD Codes: J45.901 - Unspecified asthma with (acute) exacerbation SNOMED: 450126908 Qualifiers: Qualified Codes: J45.901 - Unspecified asthma with (acute) exacerbation (3) CKD (chronic kidney disease) ICD Codes: N18.9 - Chronic kidney disease, unspecified SNOMED: 894309941 Qualifiers: Qualified Codes: N18.9 - Chronic kidney disease, unspecified (4) New onset type 2 diabetes mellitus ICD Codes: E11.9 - Type 2 diabetes mellitus without complications SNOMED: 43180543 (5) Pulmonary edema ICD Codes: J81.1 - Chronic pulmonary edema SNOMED: 39117013 Qualifiers: Qualified Codes: J81.0 - Acute pulmonary edema (6) Acute exacerbation of CHF (congestive heart failure) ICD Codes: I50.9 - Heart failure, unspecified SNOMED: 092371133, 36339993432230 Qualifiers: Qualified Codes: I50.9 - Heart failure, unspecified (7) Respiratory failure with hypoxia ICD Codes: J96.91 - Respiratory failure, unspecified with hypoxia SNOMED: 17356461520063337 Qualifiers: Qualified Codes: J96.01 - Acute respiratory failure with hypoxia Status: stable Assessment/Plan: Ms. Demetris Cruz is a 75 year old female with hx of HTN, presenting with pulmonary edema and CHF exacerbation (undiagnosed) #Pulmonary edema #acute hypoxic respiratory failure #Pedal edema #Suspected acute on chronic CHF -cardiology, pulm consult appreciated. -Continue LAsix IV 40 BID -Check BMP -BNP elevated. -cXR with pulmonary edema noted. -s/p BiPAP, lasix with significant improvement noted. -Needs TTE. -Will need GDT once CHF formally diagnosed #Hyperglycemia #DM2 -no formal diagnosis but noted to be hyperglycemic -endo consulted. appreciate recs. -check a1c -> 6.7 -RISS, POCT #Asthma -not wheezy on exam, but patient reports subjective wheezing -TID albuterol neb ordered #NENITA - improving -nephro consulted. appreciate recs. -diuresis as above. -check BMP #Hypertensive urgency #HTN likely longstanding, not on meds. -start amlodipine 10 mg daily -started hydralazine as well. will switch to BB and/or ACEi once HF confirmed and NENITA better. Time spent on encounter, 39 mins, 20 mins spent on counseling, coordination of care, d/w RN, consultants. Time of note doesn't reflect time of encounter. Subjective Date patient seen: Jan 11, 2020 ROS Limited/Unobtainable: No Constitutional: Denies: no symptoms, chills, diaphoresis, fever, malaise, weakness, other HEENT: Denies: no symptoms, eye pain, blurred vision, tearing, double vision, ear pain, ear discharge, nose pain, nose congestion, throat pain, throat swelling, mouth pain, mouth swelling, other Cardiovascular: Denies: no symptoms, chest pain, edema, irregular heart rate, lightheadedness, palpitations, syncope, other Respiratory: Denies: no symptoms, cough, orthopnea, shortness of breath, SOB with excertion, SOB at rest, sputum, stridor, wheezing, other Gastrointestinal/Abdominal: Denies: no symptoms, abdomen distended, abdominal pain, black stools, tarry stools, blood in stool, constipated, diarrhea, difficulty swallowing, nausea, poor appetite, poor fluid intake, rectal bleeding , vomiting, other Genitourinary: Denies: no symptoms, burning, discharge, frequency, flank pain, hematuria, incontinence, pain, urgency, other Neurologic/Psychiatric: Denies: no symptoms, anxiety, depressed, emotional problems, headache, numbness, paresthesia, pre-existing deficit, seizure, tingling, tremors, weakness, other Endocrine: Denies: no symptoms, excessive sweating, flushing, intolerance to cold, intolerance to heat, increased hunger, increased thirst, increased urine, unexplained weight gain, unexplained weight loss, other Hematologic/Lymphatic: Denies: no symptoms, anemia, easy bleeding, easy bruising, other Allergies: Coded Allergies: PENICILLINS (Unverified Allergy, Unknown, 01/09/20) Subjective resting in bed, now her SOB almost resolved, feeling much better physically. but anxious/ somewhat angry at me for telling her all the things/diagnoses she didn't want to hear. after a long discussion, she felt better and promised that she will f/u with her outpatient MD and take meds. Objective Last 24 Hour Vital Signs Date Time Temp Pulse Resp B/P (MAP) Pulse Ox O2 Delivery O2 Flow Rate FiO2 01/11/20 14:23 151/96 01/11/20 12:00 97 01/11/20 12:00 98.1 102 21 151/96 (114) 98 01/11/20 09:34 160/110 01/11/20 09:33 89 160/110 01/11/20 09:00 Nasal Cannula 2.0 01/11/20 08:00 93 01/11/20 08:00 98.1 89 20 160/110 (127) 97 01/11/20 04:00 90 01/11/20 04:00 98.2 89 18 144/71 (95) 96 01/11/20 02:50 Nasal Cannula 2.0 01/11/20 00:00 99.1 86 18 149/82 (104) 95 01/11/20 00:00 101 01/10/20 21:00 Nasal Cannula 2.0 01/10/20 20:00 109 01/10/20 20:00 99.0 99 18 165/95 (118) 96 01/10/20 16:30 99.0 101 19 158/108 (125) 94 01/10/20 15:58 105 01/10/20 15:49 100 164/110 01/10/20 15:19 102 01/10/20 15:15 Nasal Cannula 2.0 Intake and Output 01/10/20 01/11/20 19:00 07:00 Intake Total 120 ml Output Total 4000 ml Balance 120 ml -4000 ml Intake Oral 120 ml Output Urine Total 4000 ml Laboratory Tests 01/11/20 04:00: White Blood Count 11.4H, Red Blood Count 4.42, Hemoglobin 13.3, Hematocrit 39.5 , Mean Corpuscular Volume 89, Mean Corpuscular Hemoglobin 30.1, Mean Corpuscular Hemoglobin Concent 33.7, Red Cell Distribution Width 12.5, Platelet Count 185, Mean Platelet Volume 7.5, Neutrophils (%) (Auto) 84.0H, Lymphocytes ( %) (Auto) 8.7L, Monocytes (%) (Auto) 6.8, Eosinophils (%) (Auto) 0.0, Basophils (%) (Auto) 0.6, Sodium Level 142, Potassium Level 3.8, Chloride Level 102, Carbon Dioxide Level 31, Anion Gap 9, Blood Urea Nitrogen 29H, Creatinine 1.5H, Estimat Glomerular Filtration Rate 41.1, Glucose Level 117#H, Hemoglobin A1c 6.7H, Calcium Level 8.6 Height (Feet): 5 Height (Inches): 4.00 Weight (Pounds): 180 General Appearance: no apparent distress, alert EENT: PERRL/EOMI Neck: supple Cardiovascular: normal rate, regular rhythm Respiratory/Chest: lungs clear, normal breath sounds Abdomen: non tender, soft Edema: mild edema Neurologic: alert, oriented x 3 Garret Montaño MD Jan 11, 2020 15:07
--- NOTE | 2020-01-11 15:48 | NUR ---
*-* INSURANCE [facility]# [id number] NCM: CHANDRIKA P: [phone] 1122 F: [phone]
[2020-01-11 16:00] VITALS: BP 139/85
--- NOTE | 2020-01-11 18:30 | Consultation ---
DATE OF CONSULTATION: 01/11/2020 ENDOCRINOLOGY CONSULTATION CONSULTING PHYSICIAN: Roberto Mobley MD. REFERRING PHYSICIAN: Garret Montaño MD. REASON FOR CONSULTATION: New-onset diabetes. HISTORY OF PRESENT ILLNESS: The patient is a 75-year-old female with history of hypertension and asthma, who presents to the hospital with shortness of breath and respiratory distress. Her last doctor visit was about 2-1/2 years ago. Her primary doctor is Dr. Tommy Perera in [place] and she was never told that she was diabetic. On presentation to the emergency department, her glucose was up to 368 and she was given IV fluid and insulin, and subsequent glucose was 117. Her Wmgdb-ye-Yuht glucose values are 137, 126, and 105. There is hemoglobin A1c pending. Creatinine is elevated to 1.5. PAST MEDICAL HISTORY: Hypertension and asthma. MEDICATIONS AT HOME: None. ALLERGIES TO MEDICATIONS: Penicillin. REVIEW OF SYSTEMS: A 12-point review of systems was performed and pertinent positives and negatives in history of present illness. FAMILY HISTORY: Negative for diabetes. SOCIAL HISTORY: Denies smoking, alcohol, or drug use. LABORATORY VALUES: Sodium 142, potassium 3.8, chloride 102, bicarb 31, BUN 29, creatinine 1.5, glucose of 117. Urine-tox was negative. UA had positive 4+ glucose. Hematology shows WBC of 11, hemoglobin 13, hematocrit 39.5, and platelets of 185,000. PHYSICAL EXAMINATION: GENERAL: She is awake and alert. VITAL SIGNS: Blood pressure is 138/80, pulse of 80, temperature 98.2, respiratory rate 18. HEENT: Pupils are equal and reactive to light. Sclerae anicteric. NECK: No JVD. No thyromegaly. No bruit. LUNGS: Clear with basilar crackles. HEART: Regular rate and rhythm. ABDOMEN: Positive bowel sounds. EXTREMITIES: No clubbing or cyanosis. Trace edema. DIAGNOSES: 1. New-onset diabetes. 2. Hypertension. 3. Shortness of breath. DISCUSSION: The patient has two findings that is suggestive of type 2 diabetes; one is random glucose of over 300 and the other one is 4+ glycosuria. Her Kwfyo-um-Cdzw glucose values are in the low 100 range and there is hemoglobin A1c that is pending. Hemoglobin A1c is what will determine the diagnosis of diabetes. If this value is over 6.5%, then diagnosis of type 2 diabetes is confirmed and the patient will benefit from medical therapy. She is very reluctant to accept this diagnosis and she thinks this is a big mistake. I explained to her that we are not going to jump and start her on treatment. Instead, we will follow her blood glucose values 4 times a day and see what the trend is. If the glucose continues to run high, then the diagnosis is confirmed and we will recommend oral therapy at that time. I will follow her and further advise. Thank you, Dr. Montaño, for the courtesy of this consultation. Roberto Mobley M.D. DR: EH JOB#: [id number] CC:
--- NOTE | 2020-01-11 19:52 | NUR ---
HAND-OFF: Report given to Day EPSTEIN.
--- NOTE | 2020-01-11 19:53 | NUR ---
NURSE NOTES: Received pt from LUCIAN Bell. Pt asleep. Bed in lowest position. Call light within reach. Will continue to monitor.
[2020-01-11 20:00] VITALS: BP 150/97
[2020-01-11] MEDS: Albuterol ud Inhalation HHN SCH (20:29)
--- NOTE | 2020-01-11 22:50 | NUR ---
NURSE NOTES: Received report from LUCIAN Bernstein. Patient is awake lying semi-blake's; resting comfortably. No signs of acute distress noted; denies pain at this time. On 2L nasal cannula. AOx4; able to make needs known. Checked IV site; patent and flushed. No erythema, bleeding, or infiltration noted. Bed at lowest position, brakes on, siderails up x3. Call light within reach. Will continue to monitor.
--- NOTE | 2020-01-11 23:14 | NUR ---
NURSE NOTES: Called Dr. Scott regarding patient's complaint of nausea. Received new order for Zofran 4mg IV q6hr PRN. Noted and carried out.
[2020-01-12] VITALS: BP 115/71
[2020-01-12 04:00] VITALS: BP 135/71
[2020-01-12] MEDS: NovoLOG Insulin Flexpen SUBQ SCH (06:12)
[2020-01-12] MEDS: HydrALAZINE 50mg tab ORAL SCH (06:19)
--- NOTE | 2020-01-12 07:38 | NUR ---
HAND-OFF: Report given to LUCIAN Bell. Patient is awake lying semi-blake's; resting comfortably. On 2L nasal cannula. In stable condition.
--- NOTE | 2020-01-12 07:39 | NUR ---
NURSE NOTES: Received patient in bed awake. O2 via NC in place, no SOB or acute distress. IV line intact and patent. HOB elevated. Bed locked in lowest position. Call light within reach. Will continue plan of care.
[2020-01-12] MEDS: Albuterol ud Inhalation HHN SCH (07:50)
[2020-01-12 08:00] VITALS: BP 125/76
[2020-01-12 08:15] LABS: BASOPHILS % (AUTO) 0.7 % (0.0-2.0); EOSINOPHILS % (AUTO) 0.1 % (0.0-3.0); HEMATOCRIT 43.2 % (37.0-47.0); HEMOGLOBIN 14.7 G/DL (12.0-16.0); LYMPHOCYTES % (AUTO) 12.5 % (20.0-45.0); MEAN CORPUSCULAR VOLUME 90 FL (80-99); MONOCYTES % (AUTO) 10.5 % (1.0-10.0); NEUTROPHILS % (AUTO) 76.2 % (45.0-75.0); PLATELET COUNT 230 K/UL (150-450); RED BLOOD COUNT 4.82 M/UL (4.20-5.40); RED CELL DISTRIBUTION WIDTH 12.4 % (11.6-14.8); WHITE BLOOD COUNT 9.3 K/UL (4.8-10.8)
[2020-01-12 08:33] LABS: ANION GAP 11 mmol/L (5-15); BLOOD UREA NITROGEN 28 mg/dL (7-18); CALCIUM 8.8 MG/DL (8.5-10.1); CARBON DIOXIDE 29 MMOL/L (21-32); CHLORIDE 98 MMOL/L (98-107); CREATININE 1.5 MG/DL (0.55-1.30); POTASSIUM 3.3 MMOL/L (3.5-5.1); SODIUM 138 MMOL/L (136-145)
[2020-01-12 08:50] VITALS: BP 125/76
[2020-01-12] MEDS: Heparin 5000 units/ml inj SUBQ SCH ×2 (08:52→09:00)
[2020-01-12 09:02] LABS: PHOSPHORUS 4.8 MG/DL (2.5-4.9)
--- NOTE | 2020-01-12 10:28 | Pulmonology Progress Note ---
Subjective ROS Limited/Unobtainable: No Interval Events: COVID 19 pcr negative; Constitutional: Reports: no symptoms HEENT: Repors: no symptoms Respiratory: Reports: shortness of breath Cardiovascular: Reports: no symptoms Gastrointestinal/Abdominal: Reports: no symptoms Genitourinary: Reports: no symptoms Allergies: Coded Allergies: PENICILLINS (Unverified Allergy, Unknown, 01/09/20) Objective Last 24 Hour Vital Signs Date Time Temp Pulse Resp B/P (MAP) Pulse Ox O2 Delivery O2 Flow Rate FiO2 01/12/20 09:00 Nasal Cannula 2.0 01/12/20 08:50 102 125/76 01/12/20 08:00 97.9 102 20 125/76 (92) 94 01/12/20 08:00 102 01/12/20 06:19 135/71 01/12/20 04:00 100 01/12/20 04:00 97.7 101 19 135/71 (92) 94 01/12/20 00:00 104 01/12/20 00:00 97.9 100 20 115/71 (86) 98 01/11/20 21:42 150/97 01/11/20 21:00 Nasal Cannula 2.0 01/11/20 20:56 98 18 99 Room Air 21 95 20 96 01/11/20 20:00 99.7 100 21 150/97 (114) 94 01/11/20 20:00 100 01/11/20 16:00 107 01/11/20 16:00 97.7 106 21 139/85 (103) 98 01/11/20 14:23 151/96 01/11/20 12:00 97 01/11/20 12:00 98.1 102 21 151/96 (114) 98 Intake and Output 01/11/20 01/12/20 19:00 07:00 Intake Total 600 ml 350 ml Balance 600 ml 350 ml Intake Oral 600 ml 300 ml IV Total 50 ml # Voids 5 Microbiology Date/Time Source Procedure Growth Status 01/09/20 23:30 Nasopharynx Coronavirus COVID-19 PCR (CONRAD) - Final Complete 01/09/20 23:20 Arm Right Blood Culture - Preliminary NO GROWTH AFTER 48 HOURS Resulted 01/09/20 23:05 Arm Left Blood Culture - Preliminary NO GROWTH AFTER 48 HOURS Resulted Laboratory Tests 01/12/20 07:35: White Blood Count 9.3, Red Blood Count 4.82, Hemoglobin 14.7, Hematocrit 43.2, Mean Corpuscular Volume 90, Mean Corpuscular Hemoglobin 30.5, Mean Corpuscular Hemoglobin Concent 34.0, Red Cell Distribution Width 12.4, Platelet Count 230, Mean Platelet Volume 7.7, Neutrophils (%) (Auto) 76.2H, Lymphocytes (%) (Auto) 12.5L, Monocytes (%) (Auto) 10.5H, Eosinophils (%) (Auto) 0.1, Basophils (%) ( Auto) 0.7, Sodium Level 138, Potassium Level 3.3L, Chloride Level 98, Carbon Dioxide Level 29, Anion Gap 11, Blood Urea Nitrogen 28H, Creatinine 1.5H, Estimat Glomerular Filtration Rate 41.1, Glucose Level 112H, Calcium Level 8.8, Phosphorus Level 4.8, Magnesium Level 2.0 Current Medications Medications (Trade) Dose Ordered Sig/Manohar Route PRN Reason Start Time Stop Time Status Last Admin Dose Admin Albuterol Sulfate (Proventil) 2.5 mg TIDRT HHN 01/11/20 19:00 01/16/20 18:59 01/12/20 07:50 Amlodipine Besylate (Norvasc) 10 mg DAILY ORAL 01/10/20 15:15 02/09/20 15:14 01/12/20 08:50 Dextrose (Dextrose 50%) 25 ml Q30M PRN IV Hypoglycemia 01/10/20 15:15 04/09/20 15:14 Dextrose (Dextrose 50%) 50 ml Q30M PRN IV Hypoglycemia 01/10/20 15:15 04/09/20 15:14 Furosemide (Lasix) 40 mg EVERY 12 HOURS IV 01/10/20 21:00 02/09/20 20:59 01/12/20 08:50 Heparin Sodium (Porcine) (Heparin 5000 units/ml) 5,000 units EVERY 12 HOURS SUBQ 01/10/20 21:00 02/24/20 20:59 01/11/20 09:37 Hydralazine HCl (Apresoline) 10 mg Q4H PRN IV for SBP >160, DBP > 105 01/11/20 10:45 04/10/20 10:44 Hydralazine HCl (Apresoline) 50 mg Q8HR ORAL 01/11/20 14:00 04/10/20 13:59 01/12/20 06:19 Insulin Aspart (NovoLOG) BEFORE MEALS AND HS SUBQ 01/10/20 16:30 04/09/20 16:29 Levofloxacin 50 ml @ 50 mls/hr Q24H IVPB 01/11/20 21:00 01/18/20 20:59 01/11/20 21:42 Ondansetron HCl (Zofran) 4 mg Q6H PRN IVP Nausea & Vomiting 01/11/20 23:15 02/10/20 23:14 01/11/20 23:45 Potassium Chloride (K-Dur) 40 meq ONCE ORAL 01/12/20 09:45 01/12/20 10:45 01/12/20 09:48 Assessment/Plan Assessment/Plan IMPRESSION: 1. Pulmonary edema. 2. Hypertension. 3. Asthma. DISCUSSION: Currently, I do not suspect an infectious process. Has negative COVID 19 pcr Will dc isolation Will dc heart Continue diuresis Discharge today Wood Pascual Omar Syed MD Jan 12, 2020 10:27
--- NOTE | 2020-01-12 10:42 | NUR ---
DISCHARGE PLANNING CLINICALS FAXED PER 'S REQUEST TO [facility] T: [phone] F: [phone] Addendum: 01/12/20 at 1119 by MESHA HASTINGS LVN LVN [facility] UNABLE TO SERVICE PATIENT D/T INSURANCE FAXED HOME HEALTH ORDER TO [facility] AND REQUESTED THEY ARRANGE HOME HEALTH WITH ON OF THEIR CONTRACTED HOME HEALTHS Addendum: 01/13/20 at 0919 by MESHA HASTINGS LVN LVN [facility] T: [phone] ARRANGED BY [facility] DEHYDRATOR OPERATOR, CHANDRIKA
[2020-01-12] MEDS ORDERED: AMLODIPINE BESY10 MG ORAL ×2 (10:57→11:02)
[2020-01-12] MEDS ORDERED: FUROSEMIDE20 M1 ORAL (11:03)
[2020-01-12] MEDS ORDERED: METOPROLOL TART25 MG ORAL (11:06)
--- NOTE | 2020-01-12 12:43 | Discharge Summary ---
Discharge Summary Hospital Course Date of Admission Jan 10, 2020 at 11:51 Date of Discharge 01/12/2020 Admitting Diagnosis pulmonary edema HPI Katelyn Sobeida Cruz is a 75 year old female who was admitted on Jan 10, 2020 at 11:51 for Pulmonary Edema, CHF exacerbation, NENITA and hypertensive urgency. Presenting with 1 day of acute SOB, but reports having worsening SOB and swelling for months prior. has been not taking any medications for 1.5 years , though she was on them before that. Consultations nephrology, cardiology Procedures TTE Hospital Course Ms. Demetris Cruz is a 75 year old female with hx of HTN, presenting with pulmonary edema and CHF exacerbation (undiagnosed) #Pulmonary edema #acute hypoxic respiratory failure #Pedal edema #Suspected acute on chronic CHF -cardiology, pulm consult appreciated. -Continue LAsix IV 40 BID -> discharge on LAsix 20 mg PO daily. -Check BMP -BNP elevated. -cXR with pulmonary edema noted. -s/p BiPAP, lasix with significant improvement noted. -Needs TTE -> systolic HF, with EF 45%. -Will need GDT once CHF formally diagnosed -> MTP 25 BID. #Hyperglycemia #DM2 -no formal diagnosis but noted to be hyperglycemic -endo consulted. appreciate recs. -check a1c -> 6.7 -RISS, POCT #Asthma -not wheezy on exam, but patient reports subjective wheezing -TID albuterol neb ordered #NENITA - improving -nephro consulted. appreciate recs. -diuresis as above. -check BMP #Hypertensive urgency #HTN likely longstanding, not on meds. -start amlodipine 10 mg daily -start MTP 25 BID Time spent on encounter, 39 mins, 20 mins spent on counseling, coordination of care, d/w RN, consultants, CM. Time of note doesn't reflect time of encounter. Discharge Condition Upon Discharge: stable Discharge Vital Signs Last Vital Signs Date Time Temp Pulse Resp B/P (MAP) Pulse Ox O2 Delivery O2 Flow Rate FiO2 01/12/20 09:00 Nasal Cannula 2.0 01/12/20 08:50 102 125/76 01/12/20 08:00 97.9 20 94 01/11/20 20:56 21 Discharge Disposition Patient was discharged to Discharge Diagnoses: (1) Hypertensive cardiovascular disease (2) CKD (chronic kidney disease) (3) New onset type 2 diabetes mellitus (4) Pulmonary edema (5) Acute exacerbation of CHF (congestive heart failure) (6) Respiratory failure with hypoxia Garret Montaño MD Jan 12, 2020 12:43
--- NOTE | 2020-01-12 13:20 | NUR ---
NURSE NOTES: Patient discharged to home with home health in stable condition. Discharge instructions given, verbalized understanding. IV line removed. ID band removed. No new skin issues noted. Belongings accounted for. Accompanied by Nurse Muse to the lobby, ambulatory with steady gait. Friend waiting for patient at the lobby.
--- NOTE | 2020-01-12 14:37 | Nephrology Progress Note ---
Assessment/Plan Plan #acute kidney injury due to CRS1 #acute on chronic CHF exacerbation #Acute hypoxemic respiratory failure #SOB, orthopnea #HTN - lasix 40 IV BID - continue levaquin - bipap prn - amlodipine 10mg daily - BP control - breathing treatments - antibiotics - strict I&Os - daily weights - monitor BMP, mag and phos daily - avoid nephrotoxins Time spent 70 min - greater than 50% on care coordination and counseling Subjective Subjective Breathing improved on NC Cr 1.5 a1c 6.7 Objective Objective Last 24 Hour Vital Signs Date Time Temp Pulse Resp B/P (MAP) Pulse Ox O2 Delivery O2 Flow Rate FiO2 01/12/20 09:00 Nasal Cannula 2.0 01/12/20 08:50 102 125/76 01/12/20 08:00 97.9 102 20 125/76 (92) 94 01/12/20 08:00 102 01/12/20 06:19 135/71 01/12/20 04:00 100 01/12/20 04:00 97.7 101 19 135/71 (92) 94 01/12/20 00:00 104 01/12/20 00:00 97.9 100 20 115/71 (86) 98 01/11/20 21:42 150/97 01/11/20 21:00 Nasal Cannula 2.0 01/11/20 20:56 98 18 99 Room Air 21 95 20 96 01/11/20 20:00 99.7 100 21 150/97 (114) 94 01/11/20 20:00 100 01/11/20 16:00 107 01/11/20 16:00 97.7 106 21 139/85 (103) 98 Intake and Output 01/11/20 01/12/20 19:00 07:00 Intake Total 600 ml 350 ml Balance 600 ml 350 ml Intake Oral 600 ml 300 ml IV Total 50 ml # Voids 5 Laboratory Tests 01/12/20 07:35: White Blood Count 9.3, Red Blood Count 4.82, Hemoglobin 14.7, Hematocrit 43.2, Mean Corpuscular Volume 90, Mean Corpuscular Hemoglobin 30.5, Mean Corpuscular Hemoglobin Concent 34.0, Red Cell Distribution Width 12.4, Platelet Count 230, Mean Platelet Volume 7.7, Neutrophils (%) (Auto) 76.2H, Lymphocytes (%) (Auto) 12.5L, Monocytes (%) (Auto) 10.5H, Eosinophils (%) (Auto) 0.1, Basophils (%) ( Auto) 0.7, Sodium Level 138, Potassium Level 3.3L, Chloride Level 98, Carbon Dioxide Level 29, Anion Gap 11, Blood Urea Nitrogen 28H, Creatinine 1.5H, Estimat Glomerular Filtration Rate 41.1, Glucose Level 112H, Calcium Level 8.8, Phosphorus Level 4.8, Magnesium Level 2.0 Height (Feet): 5 Height (Inches): 4.00 Weight (Pounds): 187 García Coker M.D. Jan 12, 2020 14:37
--- NOTE | 2020-01-13 11:51 | NUR ---
*-* INSURANCE*-* DISCHARGE SUMMARY HAS BEEN FAXED TO: [facility] # [id number] LOLISM: CHANDRIKA P: [phone] 1122 F: [phone]
== END 2020-01-12 13:20 | disposition home health service (06) | DRG 291 ==
LOC: EDBD 23:08 → EMR 23:43 → EDBEDREQ 01-10 11:26 → 2E 01-10 11:51 → EDBEDREQ 01-10 12:22 → EDBEDREQSVC 01-10 12:22 → EDBEDREQ 01-10 12:41 → 2E 01-10 22:49
DX: I13.0 Hypertensive heart and chronic kidney disease with heart failure and stage 1 through stage 4 chronic kidney disease, or unspecified chronic kidney disease (principal); J96.01 Acute respiratory failure with hypoxia; I50.23 Acute on chronic systolic (congestive) heart failure; N17.9 Acute kidney failure, unspecified; J45.901 Unspecified asthma with (acute) exacerbation; N18.9 Chronic kidney disease, unspecified; I50.9 Heart failure, unspecified; Z88.0 Allergy status to penicillin; E11.22 Type 2 diabetes mellitus with diabetic chronic kidney disease; I16.0 Hypertensive urgency
CPT/HCPCS: 36415; 71045; 80048; 80053; 80307; 81001; 81003; 82570; 82728; 82962; 83036; 83735; 83880; 84100; 84300; 84484; 85025; 85379; 86140; 87040; 93005; 93306; 94640; 96365; 96366; 96375; 99291; J1815; J2405; J8499